=== PATIENT | female | born 1950 | race Caucasian/White ===

== ENCOUNTER 2017-12-30 09:38 | Day surgery (SDC) | payer OTHER ==
[2017-12-22 11:36] VITALS: BMI 19.3
[2017-12-30] MEDS ORDERED: MIDAZOLAM HCL 2 MG/2 ML SINGLE DOSE VIAL ONE ×2 (09:51→10:41)
[2017-12-30] MEDS ORDERED: DEXAMETHASONE SOD PHOSPHATE/PF 10 MG/ML SDV ONE (09:52)
[2017-12-30] MEDS ORDERED: ROPIVACAINE HCL 0.5% 30ML VIAL ONE (09:52)
[2017-12-30] MEDS ORDERED: MEPIVACAINE HCL 2% 20 ML VIAL ONE (09:56)
[2017-12-30] MEDS ORDERED: PROPOFOL 20 ML ONE ×3 (11:07)
[2017-12-30] MEDS ORDERED: SUCCINYLCHOLINE CHLORIDE 200 MG/10 ML VIAL ONE (11:07)
[2017-12-30] MEDS ORDERED: ceFAZolin SODIUM 1 GM VIAL ONE (11:37)
[2017-12-30] MEDS ORDERED: DEXAMETHASONE SOD PHOSPHATE 4 MG/1 ML VIAL ONE (11:37)
[2017-12-30] MEDS ORDERED: ONDANSETRON 4 MG/2 ML VIAL ONE (11:37)
[2017-12-30] MEDS ORDERED: ONDANSETRON 4 MG/2 ML VIAL IVPUSH PRN (12:55)
[2017-12-30] MEDS ORDERED: oxyCODONE HCL 5 MG TABLET PO PRN ×2 (12:55)
[2017-12-30] MEDS ORDERED: ACETAMINOPHEN 325 MG TABLET (FP) PO SCH (13:00)
[2017-12-30 14:16] VITALS: BP 124/60; PULSE 62; TEMP 97.8
--- NOTE | 2017-12-31 09:36 | OP ---
DATE OF OPERATION: 12/30/2017 PREOPERATIVE DIAGNOSIS: Left basal joint arthritis. POSTOPERATIVE DIAGNOSIS: Left basal joint arthritis. OPERATIVE PROCEDURE: 1. Left basal joint arthroplasty. 2. Left thumb carpometacarpal joint tendon transfer. SURGEON: Ruben June MD ANESTHESIA: Regional. COMPLICATIONS: None. ESTIMATED BLOOD LOSS: Minimal. INDICATIONS FOR PROCEDURE: The patient presented with the above finding, was indicated for operative treatment. The risks, benefits, and alternatives were discussed with the patient at length. Proper informed consent was obtained. DESCRIPTION OF PROCEDURE: After proper identification of the patient and the correct operative site, the patient was brought to the operating room and placed supine on the operating table. Prominences were well padded. Regional anesthesia and sedation were given. Left upper extremity was prepped and draped in sterile fashion. Well-padded tourniquet was placed with a sterile prep. Esmarch bandage used to exsanguinate the left upper extremity. Tourniquet inflated to 250 mmHg. A [place] incision was made over the thumb carpometacarpal joint. Incision was taken sharply through the skin with blunt and sharp dissection through subcutaneous tissues. Neurovascular structures were carefully protected. Thenar muscles were elevated off the carpometacarpal joint. A longitudinal incision was made in the carpometacarpal joint capsule. Severe arthrosis was noted at the basal joint as well as moderate arthrosis of the scaphotrapezial joint. Severe bone spurring of the trapezium was noted. Trapezium was excised in whole. The thumb was held in traction, and an Arthrex Internal Brace was used as a suspensionplasty with 2 SwiveLock anchors and a FiberTape suture. This was done, so that excellent suspensionplasty was achieved as well as full range of motion of the thumb. There was no instability of the MP joints, and no further procedures were performed. Capsule was repaired securely, and the APL tendon was transferred to the dorsal capsule for additional support. Wound was irrigated with saline and repaired in layers using 4-0 Vicryl and 4-0 Monocryl. Steri-Strips and sterile dressings were placed. Patient was reversed from anesthesia and brought to the recovery room in stable condition. She tolerated the procedure well. Splint was placed. Yashira DALE/[id number]
== END 2017-12-30 14:17 | disposition home or self-care (01) ==
LOC: FASU 09:38
PROVIDERS: ATTEND Orthopaedic Surgery Hand Surgery
PROC: 0LX80ZZ Transfer Left Hand Tendon, Open Approach (ICD-10-PCS; principal; 2017-12-30 11:43)
DX: M18.12 Unilateral primary osteoarthritis of first carpometacarpal joint, left hand (principal)